=== PATIENT | female | born 1935 | race Caucasian/White ===

== ENCOUNTER 2021-08-18 12:31 | Inpatient (IN) | payer OTHER ==
--- OUTSIDE RECORDS SUMMARY | 2021-08-18 12:34 | XMS REPORT | Continuity of Care Document ---
:1935 Author Organization [facility] t Address [address] [place] [address] Care Team Providers Name Role Phone Pierre Hatch Primary Care Physician Nurse, Poneris Immunization Attending Clinician Unavailable Rip Lopez DO Attending Clinician RIP LOPEZ Attending Clinician Unavailable Rebecca FARLEY Attending Clinician Unavailable Gayle SUE Attending Clinician Unavailable Angel Attending Clinician Unavailable Angel Admitting Clinician Unavailable Payers Payer Name Policy Type Policy Number Effective Date Expiration Date S varun [employer] INDEMNITY [id number] 2013 00:00:00 MEDIC[place]: [id number] 1999 Ocision 00:00:00 [employer] (INDEMNITY) [id number] 2009 00:00:00 Problems This patient has no known problems. Allergies, Adverse Reactions, Alerts Allergy Allergy Status Severity Reaction(s) Onset Inactive Treating Comm ents Source Name Type Date Date Clinician PENICILL Drug Active Rash Univers INS Class 7-20 ity of 00:00: [place] 00 [facility] Penicill Propensi Active Rash Univer s ins ty to 7-20 ity of adverse 00:00: [place] reaction 00 Medical s Branch Social History Social Habit Start Date Stop Date Quantity Comments Source Alcohol intake 2017-09-09 2017-09-09 0 /d [facility] 00:00:00 00:00:00 Medical Branch Tobacco use and 2016-03-25 2016-03-25 Never used [facility] exposure 00:00:00 00:00:00 Medical Branch Sex Ass[birth year] At [birth year] [facility] [place] 00:00:00 00:00:00 Medical Branch Smoking Status Start Date Stop Date Source Never smoker [facility] Medications Ordered Filled Start Stop Current Ordering Indication Dosage Frequency Signature Comments Components Source Medication Medication Date Date Medication? Clinician (SIG) Name Name KOURTNEY 2018-0 Yes 81mg Take 81 mg Univer s ASPIRIN 1-04 by mouth ity of ORAL 10:00: daily. [address] methylPREDN 2017- Yes 84mg Take 21 Uni vers ISolone 0-16 tablets by ity of (MEDROL, 00:00: mouth [place] MILENA,) 4 mg 00 SEE-INSTRU Med ical tablets CTIONS. Branch follow package directions gabapentin 2017- Yes Univers 300 mg 6-04 ity of capsule 00:00: [address] anastrozole 2017-0 Yes Univer s 1 mg tablet 5-16 ity of 00:00: [address] pravastatin 2017-0 Yes Univer s 20 mg 5-15 ity of tablet 00:00: [address] Branch metFORMIN 2017-0 Yes Univers 1,000 mg 5-14 ity of tablet 00:00: [address] JANUVIA 100 2017-0 Yes Univer s mg tablet 3-13 ity of 00:00: [address] oxybutynin 2016-0 Yes Univers chloride 7-18 ity of (DITROPAN) 00:00: [place] 5 mg tablet [facility] glimepiride 2015-0 Yes Univer s (AMARYL) 4 7-07 ity of mg tablet 00:00: [address] citalopram 2016-0 Yes Univers (CELEXA) 20 7-07 ity of mg tablet 00:00: [address] RESTASIS 2016-0 Yes Univers 0.05 % 5-09 ity of ophthalmic 00:00: [place] drops [facility] Branch lisinopril 2016-0 Yes Univers (PRINIVIL,Z 5-03 ity of ESTRIL) 20 00:00: [place] mg tablet 00 [facility] Immunizations Ordered Filled Immunization Date Status Comments Sourc e Immunization Name Name SARS-COV-2 COVID-19 2021-07-10 Completed Unive rsity of MODERNA BOOSTER 00:00:00 [place] Med ical VACCINE Branch SARS-COV-2 COVID-19 2020-12-05 Completed Unive rsity of MODERNA VACCINE 00:00:00 [facility] Branch SARS-COV-2 COVID-19 2020-10-08 Completed Unive rsity of MODERNA VACCINE 00:00:00 [facility] Procedures Procedure Date / Time Performed Performing Clinician Sarah alcantara SARS-COV-2 COVID-19 2021-07-10 18:03:00 Doctor Unassigned, No Un i[facility] [place] VACCINE Name [facility] BOOSTER,0.25ML,IM (MODERNA) Encounters Start End Encounter Admission Attending Care Care Encounter Source Date/Time Date/Time Type Type Clinicians Facility Department ID 2021-06-28 Outpatient MICAELA HINOJOSA [id number] [facility] 05:45:04 [id number] [facility] 2021-07-10 2021-07-10 Imm/Inj Nurse, Adc Pob Immunization [facility] [id number] Univers 13:01:49 13:11:49 Visit Alex Lopez [id number] [facility] [id number] Precious arteaga [facility] [id number] Mn dical [address] 2021-07-10 2021-07-10 Outpatient Ashutosh LOPEZ [facility] [id number] Univers 13:10:00 13:10:00 ALEX [facility] 2020-12-05 2020-12-05 Outpatient Ashutosh FARLEY [facility] [id number] Univers 09:40:00 09:40:00 LUCA [facility] 2020-12-05 2020-12-05 Outpatient [facility] [id number] Univers 09:10:00 09:10:00 [facility] 2020-11-05 2020-11-05 Outpatient Ashutosh FARLEY [facility] [id number] Univers 14:20:00 14:20:00 LUCA [id number] [facility] 2020-10-08 2020-10-08 Outpatient Ashutosh FARLYE [facility] [id number] Univers 12:20:00 12:20:00 LUCA [facility] 2020-10-08 2020-10-08 Outpatient Ashutosh FARLEY [facility] [id number] Univers 12:20:00 12:20:00 LUCA [id number] [facility] 2020-08-13 2020-08-13 Outpatient MICAELA SUE [id number] GENESIS 15:28:00 15:28:00 GEORGE [id number] [facility] 2016-07-28 2016-07-28 Outpatient Raju_P [facility] [id number] [place] 03:16:00 03:16:00 [id number] [facility] Results This patient has no known results.
[2021-08-18 15:26] LABS: Urine Blood Trace-intact (Negative); Urine Glucose Negative (Negative); Urine Protein Negative (Negative); Urine pH 5.5 (5.0-7.0)
[2021-08-18 15:33] LABS: Basophils % 0.7 % (0-1.3); Hematocrit 32.6 % (36.0-45.0); Lymphocytes % 27.5 % (15.3-44.8); MPV 10.2 fL (7.6-11.3); RBC Red Blood Cell Count 3.64 M/uL (3.86-4.86)
[2021-08-18 15:38] LABS: Albumin 3.6 g/dL (3.4-5.0); Bilirubin Direct 0.1 mg/dL (0-0.2); Bilirubin Total 0.3 mg/dL (0.2-1.0); Potassium 3.8 mmol/L (3.5-5.1); Protein, Total 7.3 g/dL (6.4-8.2)
[2021-08-18 15:46] LABS: Urine Bacteria <20 /HPF (<20); Urine RBC <5 /HPF (NONE SEEN)
[2021-08-18] MEDS ORDERED: NA CHLORIDE 0.9% 500 ML ONE (16:26)
--- NOTE | 2021-08-18 17:27 | RAD REPORT ---
EXAM DESCRIPTION: CTAbdomen Pelvis W Contrast - 08/18/2021 4:17 pm CLINICAL HISTORY: Abdominal pain. ABD PAIN COMPARISON: CT ABD PELVIS W CONTRAST dated 04/17/2015; CT ABD PELVIS W CONTRAST dated 04/26/2012 TECHNIQUE: Biphasic CT imaging of the abdomen and pelvis was performed with 100 ml non-ionic IV cont rast. All CT scans are performed using dose optimization technique as appropriate and may include automated exposure control or mA/KV adjustment according to patient size. FINDINGS: The lung bases are clear.Small hiatal hernia. The liver, spleen, pancreas, adrenal glands and kidneys are within normal limits. Small benign left r enal cyst measuring 14 mm. No bowel obstruction, free air, free fluid or abscess. Prominent colonic diverticulosis is seen. Ther e is mild inflammation surrounding a loop of sigmoid colon in the right lower quadrant. The appendix is surgically absent. No evidence of significant lymphadenopathy. Mild lumbar degenerative changes. IMPRESSION: Mild to moderate acute sigmoid diverticulitis without abscess.
--- NOTE | 2021-08-18 17:44 | ER ---
Nurse's Notes [facility] Name: Lacie Rutledge Age: 85 yrs Sex: Female : 1935 Arrival Date: 08/18/2021 Time: 12:36 Bed 2 Private MD: Gayle Hatch C Diagnosis: Diverticulitis of large intestine without perforation or abscess without bleeding Presentation: 08/18 13:25 Chief complaint: Patient states: Dr. Hatch sent patient to Emergency room for "some kind ss of test" ... Pt states her abdominal pain started yesterday in the right lower quadrant. Chief complaint:. Coronavirus screen: Vaccine status: Patient reports receiving the 2nd dose of the covid vaccine. Client denies travel out of the [place] in the last 14 days. Ebola Screen: Patient negative for fever greater than or equal to 101.5 degrees Fahrenheit, and additional compatible Ebola Virus Disease symptoms Patient denies exposure to infectious person. Patient denies travel to an Ebola-affected area in the 21 days before illness onset. No symptoms or risks identified at this time. Initial Sepsis Screen: Does the patient meet any 2 criteria? No. Patient's initial sepsis screen is negative. Does the patient have a suspected source of infection? No. Patient's initial sepsis screen is negative. Risk Assessment: Do you want to hurt yourself or someone else? Patient reports no desire to harm self or others. Onset of symptoms was August 17, 2021. 13:25 Method Of Arrival: Wheelchair ss 13:25 Acuity: VERONICA 3 ss Triage Assessment: 13:31 General: Appears in no apparent distress. well groomed, well developed, well nourished, ss Behavior is calm, cooperative, appropriate for age. Pain: Complains of pain in right lower quadrant. Historical: - Home Meds: 13:29 metformin 500 mg/5 mL Oral soln [Active]; ss - PMHx: 13:29 Diabetes mellitus; Hypercholesterolemia; Hypertensive disorder; Carcinoma of breast; ss - Immunization history:: Adult Immunizations up to date. - Social history:: Smoking status: Patient denies any tobacco usage or history of. Screenin:39 Abuse screen: Denies threats or abuse. Nutritional screening: No deficits noted. ll3 Tuberculosis screening: No symptoms or risk factors identified. Fall Risk IV access (20 points). Mental Status- Oriented to own ability (0 pts). Total Cotto Fall Scale indicates No Risk (0-24 pts). Assessment: 15:00 General: Appears in no apparent distress. uncomfortable, Behavior is calm, cooperative. ll3 Pain: Complains of pain in abdomen and right lower quadrant. Neuro: Level of Consciousness is awake, alert, obeys commands, Oriented to person, place, time, situation, Speech is normal, Facial symmetry appears normal. Cardiovascular: Patient's skin is warm and dry. Respiratory: Airway is patent Respiratory effort is even, unlabored, Respiratory pattern is regular, symmetrical. GI: Bowel sounds present X 4 quads. Abd is soft X 4 quads Abd is non tender in right upper quadrant, left upper quadrant and left lower quadrant Reports upper abdominal pain, nausea. Derm: Skin is pink, warm \\T\\ dry. 16:15 Reassessment: Patient appears in no apparent distress at this time. No changes from ll3 previously documented assessment. Patient and/or family updated on plan of care and expected duration. Pain level reassessed. Patient is alert, oriented x 3, equal unlabored respirations, skin warm/dry/pink. 17:54 Reassessment: Patient appears in no apparent distress at this time. Patient and/or iw family updated on plan of care and expected duration. Pain level reassessed. Patient is alert, oriented x 3, equal unlabored respirations, skin warm/dry/pink. 18:51 Reassessment: Patient appears in no apparent distress at this time. No changes from ll3 previously documented assessment. Patient and/or family updated on plan of care and expected duration. Pain level reassessed. Patient is alert, oriented x 3, equal unlabored respirations, skin warm/dry/pink. Patient states feeling better. Vital Signs: 13:25 BP 146 / 78; Pulse 72; Resp 16; Temp 98.8; Pulse Ox 97% ; Weight 75.3 kg; Height 5 ft. ss 4 in. (162.56 cm); 16:45 BP 150 / 72; Pulse 80; Resp 15; Pulse Ox 96% on R/A; Pain 0/10; ll3 18:14 BP 153 / 70; Pulse 81; Resp 15; Pulse Ox 100% on R/A; ll3 18:52 BP 139 / 60; Pulse 78; Resp 15; Pulse Ox 98% on R/A; ll3 19:35 BP 123 / 86; Pulse 79; Resp 18; Temp 97.7(O); Pulse Ox 99% on R/A; lp1 13:25 Body Mass Index 28.49 (75.30 kg, 162.56 cm) ED Course: 12:36 Patient arrived in ED. mr 12:36 Gayle Hatch MD is Private Physician. mr 13:29 Triage completed. ss 14:45 Clarence Rice NP is PHCP. pm1 14:45 Erasmo Martínez MD is Attending Physician. pm1 15:05 Aj Charles RN is Primary Nurse. ll3 16:16 CT Abd/Pelvis - IV Contrast Only In Process Unspecified. EDMS 16:39 Patient has correct armband on for positive identification. Placed in gown. Bed in low ll3 position. Call light in reach. Side rails up X 1. 16:39 Inserted saline lock: 22 gauge in right antecubital area, using aseptic technique. ll3 16:40 Arm band placed on. ll3 17:42 Gayle Hatch MD is Hospitalizing Provider. pm1 18:13 COVID-19 (Coronavirus) Document "Date of Onset" if Symptomatic Sent. ll3 19:20 Primary Nurse role handed off by Aj Charles RN tw5 19:20 Hilary Morelos is Primary Nurse. tw5 19:32 No provider procedures requiring assistance completed. Patient admitted, IV remains in lp1 place. Administered Medications: 16:36 Drug: NS 0.9% 500 ml Route: IV; Rate: bolus; Site: right antecubital; ll3 17:03 Follow up: Response: No adverse reaction; IV Status: Completed infusion; IV Intake: ll3 500ml 17:50 Not Given (Physician Discretion): Flagyl (metroNIDAZOLE) 500 mg 100 ml IVPB at 200 pm1 ml/hr once over 30 mins 17:53 Drug: LevaQUIN (levofloxacin) 500 mg Volume: 100 ml; Route: IVPB; Infused Over: 60 iw mins; Site: right antecubital; 18:51 Follow up: Response: No adverse reaction; IV Status: Completed infusion; IV Intake: ll3 100ml 18:17 Drug: Flagyl (metroNIDAZOLE) 500 mg Route: PO; ll3 18:42 Follow up: Response: No adverse reaction ll3 Intake: 17:03 IV: 500ml; Total: 500ml. ll3 18:51 IV: 100ml; Total: 600ml. ll3 Outcome: 17:43 Decision to Hospitalize by Provider. pm1 19:20 Admitted to Med/surg Report called to Spoke to Denita, She stated that Nandini will be the tw5 receiving nurse. Nandini is currently getting report on her other patients and to call back in 10 min. 19:38 Condition: stable lp1 19:51 Admitted to Med/surg accompanied by tech, room 213, on monitor, Report called to tw5 Called report to Nandini 20:12 Patient left the ED. lp1 Signatures: Dispatcher [employer] EDNH Julia Crabtree Irene, RN ADINA Lamar Payne RN RN ss Pena, Laura, RN RN lp1 Clarence Rice, BILINGUAL INSTRUCTOR BILINGUAL INSTRUCTOR pm1 Hilary Morelos tw5 Aj Charles RN RN ll3
--- NOTE | 2021-08-18 17:44 | EDPHYS ---
Physician Documentation [facility] Name: Lacie Rutledge Age: 85 yrs Sex: Female : 1935 Arrival Date: 08/18/2021 Time: 12:36 Bed 2 Private MD: Gayle Hatch C ED Physician Erasmo Martínez HPI: 08/18 14:59 This 85 yrs old Female presents to ER via Wheelchair with complaints of Abdominal Pain. pm1 14:59 The patient presents with abdominal pain right lower quadrant. Onset: The pm1 symptoms/episode began/occurred yesterday. The symptoms do not radiate. Associated signs and symptoms: Pertinent positives: nausea, Pertinent negatives: diarrhea, dysuria, fever, vomiting. The symptoms are described as sharp. Modifying factors: the symptoms are aggravated by walking a long distance. Severity of pain: in the emergency department the pain is unchanged. The patient has not experienced similar symptoms in the past. The patient has been recently seen by a physician: the patient's primary care provider, Dr. Hatch earlier today, with similar presenting complaints, and was sent to the [facility] Emergency Department for further evaluation. Historical: - Home Meds: 13:29 metformin 500 mg/5 mL Oral soln [Active]; ss - PMHx: 13:29 Diabetes mellitus; Hypercholesterolemia; Hypertensive disorder; Carcinoma of breast; ss - Immunization history:: Adult Immunizations up to date. - Social history:: Smoking status: Patient denies any tobacco usage or history of. ROS: 14:59 Constitutional: Negative for fever, chills, and weight loss, Cardiovascular: Negative pm1 for chest pain, palpitations, and edema, Respiratory: Negative for shortness of breath, cough, wheezing, and pleuritic chest pain. 14:59 Back: Negative for injury and pain, : Negative for injury, bleeding, discharge, and swelling, MS/Extremity: Negative for injury and deformity, Skin: Negative for injury, rash, and discoloration. 14:59 Abdomen/GI: Positive for abdominal pain, nausea, of the right lower quadrant, Negative for vomiting, diarrhea, constipation. 14:59 All other systems are negative. Exam: 14:59 Constitutional: This is a well developed, well nourished patient who is awake, alert, pm1 and in no acute distress. Head/Face: Normocephalic, atraumatic. 14:59 Back: No spinal tenderness. No costovertebral tenderness. Full range of motion. Skin: Warm, dry with normal turgor. Normal color with no rashes, no lesions, and no evidence of cellulitis. MS/ Extremity: Pulses equal, no cyanosis. Neurovascular intact. Full, normal range of motion. 14:59 Eyes: Exam is negative for acute changes, Extraocular movements: no acute changes, Conjunctiva: no acute changes, no injection, Sclera: no acute changes, icterus, is not appreciated. 14:59 ENT: Exam is negative for acute changes, Mouth: Lips: normal, moist, Oral mucosa: normal, pink and intact, moist. 14:59 Cardiovascular: Exam negative for acute changes, Rate: normal, Rhythm: regular, Pulses: no pulse deficits are appreciated. 14:59 Respiratory: Exam negative for acute changes, respiratory distress, shortness of breath, Breath sounds: are clear throughout. 14:59 Abdomen/GI: Inspection: abdomen appears normal, Palpation: soft, in all quadrants, mild abdominal tenderness, in the right lower quadrant. 14:59 Neuro: Exam negative for acute changes, Orientation: is normal, Mentation: is normal, Motor: is normal, moves all fours, Gait: is steady, at a normal pace, without difficulty. Vital Signs: 13:25 BP 146 / 78; Pulse 72; Resp 16; Temp 98.8; Pulse Ox 97% ; Weight 75.3 kg; Height 5 ft. ss 4 in. (162.56 cm); 16:45 BP 150 / 72; Pulse 80; Resp 15; Pulse Ox 96% on R/A; Pain 0/10; ll3 18:14 BP 153 / 70; Pulse 81; Resp 15; Pulse Ox 100% on R/A; ll3 18:52 BP 139 / 60; Pulse 78; Resp 15; Pulse Ox 98% on R/A; ll3 19:35 BP 123 / 86; Pulse 79; Resp 18; Temp 97.7(O); Pulse Ox 99% on R/A; lp1 13:25 Body Mass Index 28.49 (75.30 kg, 162.56 cm) MDM: 14:45 Patient medically screened. pm1 16:38 Data reviewed: vital signs. Data interpreted: Pulse oximetry: on room air is 97 %. pm1 Interpretation: normal. 17:42 Counseling: I had a detailed discussion with the patient and/or guardian regarding: the pm1 historical points, exam findings, and any diagnostic results supporting the discharge/admit diagnosis, lab results, radiology results, the need for further work-up and treatment in the hospital. 17:49 ED course: No IV flagyl available. Patient not vomiting. Will give flagyl PO with IV pm1 quinolone. 08/18 14:52 Order name: Basic Metabolic Panel; Complete Time: 15:44 pm1 08/18 14:52 Order name: CBC with Diff; Complete Time: 15:44 pm1 08/18 14:52 Order name: Hepatic Function; Complete Time: 15:44 pm1 08/18 14:52 Order name: Lipase; Complete Time: 15:44 pm1 08/18 14:52 Order name: Urine Microscopic Only; Complete Time: 15:50 pm1 08/18 15:26 Order name: Urine Dipstick-Ancillary [facility] 08/18 14:52 Order name: CT Abd/Pelvis - IV Contrast Only; Complete Time: 17:30 pm1 08/18 18:05 Order name: COVID-19 (Coronavirus) Document "Date of Onset" if Symptomatic pm1 08/18 18:18 Order name: CORONAVIRUS [facility] 08/18 19:09 Order name: SARS-COV-2 RT PCR; Complete Time: 22:34 [facility] 08/18 14:52 Order name: IV Saline Lock; Complete Time: 15:22 pm1 08/18 14:52 Order name: Labs collected and sent; Complete Time: 15:22 pm1 08/18 14:52 Order name: Urine Dipstick-Ancillary (obtain specimen); Complete Time: 15:05 pm1 Administered Medications: 16:36 Drug: NS 0.9% 500 ml Route: IV; Rate: bolus; Site: right antecubital; ll3 17:03 Follow up: Response: No adverse reaction; IV Status: Completed infusion; IV Intake: ll3 500ml 17:50 Not Given (Physician Discretion): Flagyl (metroNIDAZOLE) 500 mg 100 ml IVPB at 200 pm1 ml/hr once over 30 mins 17:53 Drug: LevaQUIN (levofloxacin) 500 mg Volume: 100 ml; Route: IVPB; Infused Over: 60 iw mins; Site: right antecubital; 18:51 Follow up: Response: No adverse reaction; IV Status: Completed infusion; IV Intake: ll3 100ml 18:17 Drug: Flagyl (metroNIDAZOLE) 500 mg Route: PO; ll3 18:42 Follow up: Response: No adverse reaction ll3 Disposition: 08/19 07:19 Co-signature as Attending Physician, Erasmo Martínez MD I agree with the assessment and rn plan of care. Attestation: The patient's history, exam findings, diagnostics, and a summary of any interventions or procedures was reviewed in detail with Clarence Rice NP. Disposition Summary: 08/18/21 17:43 Hospitalization Ordered Hospitalization Status: Inpatient Admission pm1 Provider: Gayle Hatch pm1 Location: Telemetry/MedSurg (Inpatient) pm1 Condition: Stable pm1 Problem: new pm1 Symptoms: have improved pm1 Bed/Room Type: Standard pm1 Room Assignment: 213(08/18/21 19:15) cg Diagnosis - Diverticulitis of large intestine without perforation or abscess without bleeding pm1 Forms: - Medication Reconciliation Form pm1 - SBAR form pm1 Signatures: Dispatcher [employer] EDMS Sulma Gomez Irene, RN Erasmo Tripp MD MD rn Smirch, Shelby, RN RN ss Garcia, Cindy, RN RN cg Marinas, Patrick, NP RADIATOR REPAIRER pm1 Aj Charles, RN RN ll3 Corrections: (The following items were deleted from the chart) 08/18 18:00 17:43 pm1 bd 18:55 18:00 213 bd cg 19:15 18:55 cg cg
[2021-08-18] MEDS ORDERED: Levofloxacin500mg IV 500 MG/100 ML BAG IV ONE (17:47)
[2021-08-18] MEDS ORDERED: metroNIDAZOLE 500 MG TABLET ONE (18:15)
[2021-08-18 21:34] VITALS: BMI 28.0
[2021-08-18] MEDS: D5 0.45 NS 1,000 ML IV SCH (22:41)
[2021-08-18] MEDS: metroNIDAZOLE 500 MG TABLET PO SCH (22:41)
--- NOTE | 2021-08-18 23:11 | HP ---
Date of Admission: 08/18/2021 Chief Complaint: Abdominal pain. History Of Present Illness: This is an 85-year-old very pleasant female patient who called office to day requesting appointment to see me for abdominal pain. She reports that as of yesterday, she start ed to have this pain in the right lower quadrant of her abdomen. Pain is intermittent. Does not rad iate anywhere. Pain tends to get worse when she moves around and it tends to get better when she is resting. Denies any fever, chills, nausea, vomiting, constipation, diarrhea. No blood in urine. No blood in stool. No rash. No urinary complaints. After she was evaluated in office, she was sent t o emergency room. I was concerned about possibility of acute diverticulitis and other possible diffe rential diagnosis discussed with her. ER physician was contacted and details were discussed with ER physician requesting evaluation, and after patient was evaluated with all the necessary blood work, C AT scan, she was admitted to hospital with acute diverticulitis without any complication. Allergies: TO PENICILLIN CAUSING RASH. Medications: Anastrozole 1 mg daily, aspirin 81 mg daily, vitamin D3 5000 units daily, citalopram 20 mg daily, gabapentin 300 mg 2 times a day, glimepiride 4 mg 2 times a day, losartan 100 mg daily, me tformin 1000 mg 2 times a day, oxybutynin 5 mg daily, pioglitazone 30 mg daily in morning with breakf ast, pravastatin 20 mg daily in the evening. Review of Systems: GI: As mentioned above. All other systems reviewed and negative. Past Medical History: Type 2 diabetes mellitus, hypertension, mixed hyperlipidemia, diverticulosis, left breast cancer, osteoarthritis at multiple sites, anemia. Past Surgical History: Left-sided mastectomy, hemorrhoid surgery, partial hysterectomy, bladder susp ension, bilateral carpal tunnel release, and breast augmentation with breast reconstruction. Family History: Father had coronary artery disease. Mother had [place] and diabetes. Sister , had d iabetes and cerebral aneurysm. Social History: Negative for smoking. Use of alcohol, occasional glass of wine. Immunization History: She had her COVID-19 vaccine on October 08, 2020, December 05, 2020 and booster do se on 07/10/2021. Physical Examination: Vital Signs: Temperature 98.8, pulse 72, respiratory rate 16, blood pressure 146/78, oxygen saturati on 97%, height 5 feet 4 inches, weight 166 pounds. General: Awake, alert, oriented, not in distress. HEENT: Head atraumatic, normocephalic. Conjunctivae nonerythematous. Sclerae white. Mouth, no thr ush or edema noted. Ears/Nose, no mass, lesion, discharge noted. Neck: Supple. No JVD, lymph nodes, bruit, thyromegaly noted. Lungs: Bilateral good equal air entry. Clear to auscultation. No rhonchi. No rales. Heart: Normal heart sounds, no murmur or gallop. Abdomen: Soft. Bowel sounds normal. No guarding, rigidity, distention. No rebound tenderness. No hepatosplenomegaly. No bruit. The patient does have significant tenderness in the right lower quad rant. No rebound tenderness. Extremities: No leg edema. No calf tenderness. Skin: No rash, ulcer, cellulitis. Lymphatics: No lymph node enlargement in neck, supraclavicular, infraclavicular region. Neuro: No focal neurological deficit. Chest: Unremarkable. External Genitalia: Deferred. Rectal: Deferred. Laboratory Data: White count 7.2, hemoglobin 10.6, platelets 180. Sodium 139, potassium 3.8, chlori de 103, bicarb 30, BUN 18, creatinine 1.03, glucose 119. Liver function test unremarkable. Lipase 9 4. Urinalysis; trace blood, otherwise negative. COVID-19 test negative. Her CAT scan of the abdome n and pelvis done in the emergency room showed evidence of sigmoid diverticulitis without any perfora tion or any complication. Impression: 1.Acute diverticulitis. 2.Hypertension. 3.Mixed hyperlipidemia. 4.Type 2 diabetes mellitus. 5.Left breast cancer. 6.Osteoarthritis, multiple sites. 7.Chronic anemia. Plan: We will go ahead and admit the patient to hospital for further evaluation and management of th is problem. The patient is appropriate for inpatient and is expected to spend 2 midnights in the [facility] pital. We will go ahead and start her on IV fluid, IV antibiotics, pain medications will be given pe r order, home medications will be continued per order. Diabetes will be managed with sliding scale i nsulin. We will give DVT prophylaxis per order and I will see her tomorrow for followup. Details an d plan of treatment discussed with the patient. JOHNY/DANIELA Voice ID: [id number]
[2021-08-19] MEDS: D5 0.45 NS 1,000 ML IV SCH (04:04)
[2021-08-19 05:37] LABS: Absolute Lymphocytes (CBC) 1.4 K/uL (0.7-4.9); Basophils % 0.4 % (0-1.3); Hematocrit 28.5 % (36.0-45.0); Lymphocytes % 26.2 % (15.3-44.8); MPV 10.3 fL (7.6-11.3); RBC Red Blood Cell Count 3.18 M/uL (3.86-4.86)
[2021-08-19 05:59] LABS: Albumin 2.8 g/dL (3.4-5.0); Bilirubin Direct 0.1 mg/dL (0-0.2); Bilirubin Total 0.3 mg/dL (0.2-1.0); Potassium 3.7 mmol/L (3.5-5.1)
[2021-08-19] MEDS ORDERED: GLUCAGON 1 MG/VIAL IM PRN (06:07)
[2021-08-19] MEDS ORDERED: D50W 25 GM/50 ML SYRINGE IV PRN (06:07)
[2021-08-19] MEDS: metroNIDAZOLE 500 MG TABLET PO SCH ×5 (06:37→23:23)
[2021-08-19] MEDS: INSULIN -REGULAR HUMAN 50 UNIT/0.5 ML ML SQ SCH ×4 (08:50→21:00)
[2021-08-19] MEDS: OXYBUTYNIN ER 5 MG TAB PO SCH (08:51)
[2021-08-19] MEDS: PIOGLITAZONE 15 MG TAB PO SCH (08:51)
[2021-08-19] MEDS: GABAPENTIN 300 MG CAP PO SCH ×2 (08:51→21:02)
[2021-08-19] MEDS: ANASTROZOLE 1 MG TAB PO SCH (08:52)
[2021-08-19] MEDS: ENOXAPARIN 40 MG/0.4 ML SQ SCH (08:52)
[2021-08-19] MEDS: CITALOPRAM 10 MG TABLET PO SCH (08:52)
[2021-08-19] MEDS: LOSARTAN POTASSIUM 50 MG TABLET PO SCH (08:52)
[2021-08-19] MEDS ORDERED: Levofloxacin500mg IV 500 MG/100 ML BAG IV SCH (21:00)
[2021-08-19] MEDS ORDERED: ATORVASTATIN 10 MG TAB PO SCH (21:00)
--- NOTE | 2021-08-20 | PN ---
Date of Progress Note: 08/19/2021 Subjective: The patient was seen this morning for followup. She was lying in bed, not in any distre ss. No new complaints or problems reported overnight. Objective: Vital Signs: Reviewed. HEENT: Examination unremarkable. Lungs: Clear to auscultation. Heart: Sounds normal. Abdomen: Soft. Bowel sounds normal. No guarding, rigidity, distention. Presence of right lower qu adrant tenderness but overall it is better today than yesterday. No rebound tenderness. Extremities: No leg edema. Laboratory Data: White count 5.2, hemoglobin 9.4, platelets 146. Sodium 138, potassium 3.7, chlorid e 104, bicarb 28, BUN 11, creatinine 0.92, glucose 222. Liver function tests unremarkable. Impression: 1.Acute diverticulitis, without complication. 2.Hypertension. 3.Type 2 diabetes mellitus. Plan: We will go ahead and continue current antibiotic, and we will start the patient on clear liqui d diet and continue home medications per order. Patient was encouraged to ambulate today. I will se e her tomorrow for followup. Depending on her condition tomorrow, we will decide if we can advance d iet tomorrow and discharge her to go home tomorrow. JOHNY/MODL Voice ID: [id number] Report ID: [id number]
[2021-08-20 00:16] VITALS: O2SAT 98
[2021-08-20] MEDS: metroNIDAZOLE 500 MG TABLET PO SCH (05:21)
[2021-08-20 06:40] LABS: Absolute Lymphocytes (CBC) 1.3 K/uL (0.7-4.9); Basophils % 0.5 % (0-1.3); Hematocrit 31.9 % (36.0-45.0); Lymphocytes % 36.2 % (15.3-44.8); MPV 10.5 fL (7.6-11.3); RBC Red Blood Cell Count 3.56 M/uL (3.86-4.86)
[2021-08-20 06:56] LABS: Magnesium 1.6 mg/dL (1.8-2.4); Potassium 3.8 mmol/L (3.5-5.1)
[2021-08-20] MEDS: INSULIN -REGULAR HUMAN 50 UNIT/0.5 ML ML SQ SCH (07:30)
[2021-08-20] MEDS ORDERED: MAGNESIUM SULFATE 1 gm IVPB 1 GM/100 ML BAG IV ONE (07:32)
[2021-08-20] MEDS: ANASTROZOLE 1 MG TAB PO SCH (08:20)
[2021-08-20] MEDS: LOSARTAN POTASSIUM 50 MG TABLET PO SCH (08:21)
[2021-08-20] MEDS: PIOGLITAZONE 15 MG TAB PO SCH (08:21)
[2021-08-20] MEDS: ENOXAPARIN 40 MG/0.4 ML SQ SCH (08:21)
[2021-08-20] MEDS: CITALOPRAM 10 MG TABLET PO SCH (08:21)
[2021-08-20] MEDS: OXYBUTYNIN ER 5 MG TAB PO SCH (08:21)
[2021-08-20] MEDS: GABAPENTIN 300 MG CAP PO SCH (08:21)
[2021-08-20 09:29] VITALS: BP 129/68; TEMP 97.9
--- NOTE | 2021-08-20 20:30 | DS ---
Date of Discharge: 08/20/2021 Disposition: Discharged to go home. Physical Examination: HEENT: Unremarkable. Lungs: Clear to auscultation. Heart: Sounds normal. Abdomen: Soft. Bowel sounds normal. No guarding, rigidity, tenderness, or distention. Extremities: No leg edema. Laboratory Data: Upon admission, white count 7.2, hemoglobin 10.6, platelets 180. Today, white count 3.7, hemoglobin 10.4, platelets 176. Today, sodium 139, potassium 3.8, chloride 103, bicarb 30, BUN 8, creatinine 0.99, glucose 164, magnesium 1.6. Discharge Medications And Instructions: 1. Continue prior home medication. 2. Take Levaquin 500 mg daily for 10 days, metronidazole 500 mg 3 times a day for 10 days. 3. Metamucil fiber gummy steak 3 fiber gummies by mouth daily. 4. Eat soft diet for 2 days, then regular diet, avoid popcorn, nuts, tomato, strawberry, etc. 5. Follow up at my office a week after next and call office for appointment. Hospital Course: An 85-year-old female patient admitted to the hospital with acute diverticulitis problem. Please see dictated H and P for more information. After patient was evaluated in the emergency room, she was admitted to the hospital with acute diverticulitis without any complication. Initially, she was kept n.p.o. and then as of yesterday, we started her on clear liquid diet. She tolerated that very well. She was advised to start ambulation and she did ambulate yesterday very well. She does not have any bleeding complication or any abscess. Her pain has improved this morning. When I saw her she was feeling much better. We advanced her diet to soft diet today. I did give her diet instructions. I saw her this morning and she was advised to take antibiotic as prescribed for 10 days. She was also instructed to start taking stool softener on a daily basis and I will see her week after next for followup. Her CAT scan had shown acute sigmoid diverticulitis without any complication. Chest x-ray was unremarkable. The patient was discharged to go home in improved and stable condition. Final Diagnoses: 1. Acute diverticulitis. 2. Hypertension. 3. Mixed hyperlipidemia. 4. Type 2 diabetes mellitus. 5. Left breast cancer. 6. Osteoarthritis, multiple sites. 7. Chronic anemia. 8. Hypomagnesemia. JOHNY/MODL Voice ID: [id number] Report ID: [id number]
== END 2021-08-20 11:20 | disposition home or self-care (01) | DRG 392 ==
LOC: ER 12:31 → ERHOLD 17:46 → 2ND 19:48
PROVIDERS: ADMIT Internal Medicine; ATTEND Internal Medicine
DX: K57.32 Diverticulitis of large intestine without perforation or abscess without bleeding (principal); E11.9 Type 2 diabetes mellitus without complications; M19.90 Unspecified osteoarthritis, unspecified site; D64.9 Anemia, unspecified; E83.42 Hypomagnesemia; E78.2 Mixed hyperlipidemia; I10 Essential (primary) hypertension; Z79.84 Long term (current) use of oral hypoglycemic drugs; Z85.3 Personal history of malignant neoplasm of breast; Z88.0 Allergy status to penicillin; Z79.82 Long term (current) use of aspirin; Z79.899 Other long term (current) drug therapy; Z90.711 Acquired absence of uterus with remaining cervical stump; Z90.12 Acquired absence of left breast and nipple; Z20.822 Contact with and (suspected) exposure to COVID-19
CPT/HCPCS: 36415; 74177; 80048; 80076; 81003; 81015; 82947; 83690; 83735; 85025; 96365; 99285; J1650; J3475; J7040; J7799; Q9967; U0003